=== PATIENT | female | born 1940 ===

== ENCOUNTER 2023-02-14 13:47 | Outpatient (AMB) | payer MEDICARE, MEDICAID, SELFPAY ==
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
[2023-02-14 14:22] VITALS: BP 102/58; PULSE 98; RESP 14; O2SAT 96; BMI 16.8
== END 2023-02-14 14:48 | disposition home or self-care (01) ==
PROVIDERS: PCP Emergency Medicine; Visit Provider Anesthesiology
DX: M62.838 Other muscle spasm (principal); N31.9 Neuromuscular dysfunction of bladder, unspecified; M79.672 Pain in left foot
CPT/HCPCS: 99203

== ENCOUNTER → 2023-02-14 13:47 | Outpatient (BNVA) | payer MEDICARE, MEDICAID, SELFPAY | PROVIDERS: PCP Emergency Medicine; Visit Provider Anesthesiology | DX: N31.9 Neuromuscular dysfunction of bladder, unspecified (principal); M62.838 Other muscle spasm | CPT/HCPCS: 99202 ==

== ENCOUNTER 2025-04-25 14:03 | Outpatient (AMB) | payer MEDICARE, MEDICAID, SELFPAY ==
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
[2025-04-25 14:26] VITALS: BP 146/64; PULSE 89; RESP 18; O2SAT 96; BMI 24.0
== END 2025-04-25 14:55 | disposition home or self-care (01) ==
LOC: HO.PMC 14:03
PROVIDERS: PCP Emergency Medicine; Visit Provider Anesthesiology
DX: N31.9 Neuromuscular dysfunction of bladder, unspecified (principal); M62.838 Other muscle spasm; S34.109S Unspecified injury to unspecified level of lumbar spinal cord, sequela
CPT/HCPCS: 99213

== ENCOUNTER → 2025-04-25 14:03 | Outpatient (BNVA) | payer MEDICARE, SELFPAY | PROVIDERS: PCP Emergency Medicine; Visit Provider Anesthesiology | DX: S34.109S Unspecified injury to unspecified level of lumbar spinal cord, sequela (principal); M62.838 Other muscle spasm; N31.9 Neuromuscular dysfunction of bladder, unspecified; Z99.3 Dependence on wheelchair | CPT/HCPCS: 99212 ==